=== PATIENT | female | born 1945 | race Two or more races ===

== ENCOUNTER → 2023-01-07 | Outpatient (CLI) | payer OTHER | END | disposition home or self-care (01) | LOC: SONOGRAMA 10:20 | PROVIDERS: ATTEND Obstetrics & Gynecology | DX: E03.9 Hypothyroidism, unspecified (principal) ==

== ENCOUNTER 2023-01-10 13:09 | Outpatient (CLI) | payer OTHER | END 2023-01-10 13:21 | disposition home or self-care (01) | LOC: SONOGRAMA 13:09 | PROVIDERS: ATTEND Obstetrics & Gynecology | DX: E03.9 Hypothyroidism, unspecified (principal) ==